=== PATIENT | female | born 1970 | race African-American/Black ===

== ENCOUNTER 2016-08-31 18:41 | Emergency (ER) | payer OTHER ==
[~2016-08-31] VITALS: Ht 168.9 cm; Wt 63.5 kg
[~2016-08-31 18:41] MED LIST: CITA20TA9 PO
[2016-08-31 20:08] VITALS: BP 112/72
== END 2016-08-31 20:34 | disposition home or self-care (01) ==
LOC: EMS 18:44
DX: L03.114 Cellulitis of left upper limb (principal); F17.210 Nicotine dependence, cigarettes, uncomplicated; F12.90 Cannabis use, unspecified, uncomplicated; Z88.1 Allergy status to other antibiotic agents; Z91.018 Allergy to other foods
CPT/HCPCS: 99283

== ENCOUNTER 2016-09-03 11:14 | Emergency (ER) | payer OTHER ==
[~2016-09-03] VITALS: Ht 167.6 cm; Wt 63.6 kg
[2016-09-03] MEDS ORDERED: DOXY100C40 PO (11:25)
[2016-09-03] MEDS ORDERED: BACTDSB PO (11:25)
[2016-09-03] MEDS ORDERED: CEPH500C2 PO (11:57)
[2016-09-03] MEDS ORDERED: TraMADol HCL 50 MG TABLET PO ONE (13:30)
[2016-09-03] MEDS ORDERED: DOXYCYCLINE 100 MG CAPSULE PO ONE (13:30)
[2016-09-03 14:54] VITALS: BP 104/75
== END 2016-09-03 15:26 | disposition home or self-care (01) ==
LOC: EMS 11:15
DX: L02.414 Cutaneous abscess of left upper limb (principal); F17.210 Nicotine dependence, cigarettes, uncomplicated; F12.90 Cannabis use, unspecified, uncomplicated; Z88.8 Allergy status to other drugs, medicaments and biological substances; Z91.018 Allergy to other foods
CPT/HCPCS: 99283; 99406

== ENCOUNTER 2017-03-23 09:22 | Emergency (ER) | payer OTHER ==
[~2017-03-23] VITALS: Ht 167.6 cm; Wt 65.9 kg
[~2017-03-23 09:22] MED LIST changes: +BACTDSB PO; +CEPH500C2 PO
[2017-03-23 10:21] VITALS: BP 124/78
== END 2017-03-23 10:30 | disposition home or self-care (01) ==
LOC: EMS 09:23
DX: L02.411 Cutaneous abscess of right axilla (principal); F17.210 Nicotine dependence, cigarettes, uncomplicated; F12.90 Cannabis use, unspecified, uncomplicated; Z88.8 Allergy status to other drugs, medicaments and biological substances; Z88.1 Allergy status to other antibiotic agents
CPT/HCPCS: 99283

== ENCOUNTER 2017-03-25 09:06 | Emergency (ER) | payer OTHER ==
[~2017-03-25] VITALS: Ht 167.6 cm; Wt 65.5 kg
[~2017-03-25 09:06] MED LIST changes: -BACTDSB PO; -CEPH500C2 PO
[2017-03-25] MEDS ORDERED: SULF1TAB42 PO (09:14)
[2017-03-25] MEDS ORDERED: MORPHINE SULFATE 4 MG/ML SYRINGE IM ONE (11:15)
[2017-03-25] MEDS ORDERED: LIDOCAINE HCL 1% 10 ML VIAL INJ ONE (11:15)
[2017-03-25 12:43] VITALS: BP 97/77
== END 2017-03-25 12:45 | disposition home or self-care (01) ==
LOC: EDUNIT# 09:06 → EMS 09:08
DX: L02.411 Cutaneous abscess of right axilla (principal); F12.90 Cannabis use, unspecified, uncomplicated; F17.210 Nicotine dependence, cigarettes, uncomplicated; Z88.1 Allergy status to other antibiotic agents; Z91.018 Allergy to other foods
CPT/HCPCS: 10060; 96372; 99283; J2270; J3490

== ENCOUNTER 2017-03-27 13:46 | Emergency (ER) | payer OTHER ==
[~2017-03-27] VITALS: Ht 167.6 cm; Wt 65.9 kg
[~2017-03-27 13:46] MED LIST changes: +SULF1TAB42 PO
[2017-03-27] MEDS ORDERED: HYDROCODONE/ACETAMINOPHEN 5-325 MG TABLET PO ONE (18:30)
[2017-03-27] MEDS ORDERED: POVIDONE-IODINE 10% 15 ML SOLUTION UD TP ONE (18:30)
[2017-03-27 19:13] VITALS: BP 121/78
== END 2017-03-27 19:13 | disposition home or self-care (01) ==
LOC: EMS 13:48
DX: Z48.00 Encounter for change or removal of nonsurgical wound dressing (principal); F12.90 Cannabis use, unspecified, uncomplicated; F17.210 Nicotine dependence, cigarettes, uncomplicated; Z88.0 Allergy status to penicillin; Z91.018 Allergy to other foods
CPT/HCPCS: 99283

== ENCOUNTER 2017-05-21 07:37 | Emergency (ER) | payer OTHER ==
[~2017-05-21] VITALS: Ht 167.6 cm; Wt 65.5 kg
[2017-05-21 10:13] VITALS: BP 118/68
== END 2017-05-21 10:30 | disposition home or self-care (01) ==
LOC: EMS 07:38
DX: L02.412 Cutaneous abscess of left axilla (principal); F17.210 Nicotine dependence, cigarettes, uncomplicated; F12.90 Cannabis use, unspecified, uncomplicated; Z88.1 Allergy status to other antibiotic agents; Z88.8 Allergy status to other drugs, medicaments and biological substances
CPT/HCPCS: 99283

== ENCOUNTER 2017-05-24 08:59 | Emergency (ER) | payer OTHER ==
[~2017-05-24] VITALS: Ht 167.6 cm; Wt 65.9 kg
[~2017-05-24 08:59] MED LIST changes: -SULF1TAB42 PO
[2017-05-24] MEDS ORDERED: IBUPROFEN 800 MG TABLET PO ONE (11:15)
[2017-05-24] MEDS ORDERED: BUPIVACAINE HCL/PF 0.25% 10 ML VIAL INJ ONE (11:15)
[2017-05-24] MEDS ORDERED: POVIDONE-IODINE 10% 15 ML SOLUTION UD TP ONE (11:15)
[2017-05-24 12:31] VITALS: BP 122/79
== END 2017-05-24 12:50 | disposition home or self-care (01) ==
LOC: EMS 08:59
DX: L02.414 Cutaneous abscess of left upper limb (principal); F17.210 Nicotine dependence, cigarettes, uncomplicated; F12.90 Cannabis use, unspecified, uncomplicated; Z88.1 Allergy status to other antibiotic agents; Z88.8 Allergy status to other drugs, medicaments and biological substances
CPT/HCPCS: 10060; 99283; J3490

== ENCOUNTER 2017-05-26 09:14 | Emergency (ER) | payer OTHER ==
[~2017-05-26] VITALS: Ht 167.6 cm; Wt 61.4 kg
[2017-05-26 10:00] VITALS: BP 102/72
== END 2017-05-26 10:07 | disposition home or self-care (01) ==
LOC: EMS 09:16
DX: Z48.00 Encounter for change or removal of nonsurgical wound dressing (principal); F32.9 Major depressive disorder, single episode, unspecified; F12.10 Cannabis abuse, uncomplicated; F17.210 Nicotine dependence, cigarettes, uncomplicated; Z88.1 Allergy status to other antibiotic agents; Z91.02 Food additives allergy status
CPT/HCPCS: 99283

== ENCOUNTER 2018-02-09 16:50 | Emergency (ER) | payer OTHER ==
[~2018-02-09] VITALS: Ht 167.6 cm; Wt 50.0 kg
[~2018-02-09 16:50] MED LIST changes: +CITA-106 PO; -CITA20TA9 PO
[2018-02-09] MEDS ORDERED: BACITRACIN 0.9 GM PACKET OINTMENT TP ONE (19:15)
[2018-02-09] MEDS ORDERED: PERTUSS(ACELL),DIPH,TET VAC/PF 0.5 ML VIAL IM ONE (19:15)
[2018-02-09] MEDS ORDERED: KETOROLAC TROMETHAMINE 30 MG/ML VIAL IM ONE (19:15)
[2018-02-09] MEDS ORDERED: LIDOCAINE HCL/PF 1% 5 ML VIAL INJ ONE (19:15)
[2018-02-09 20:48] VITALS: BP 121/69
== END 2018-02-09 20:55 | disposition home or self-care (01) ==
LOC: EMS 16:52
DX: S91.011A Laceration without foreign body, right ankle, initial encounter (principal); F32.9 Major depressive disorder, single episode, unspecified; K76.9 Liver disease, unspecified; F17.210 Nicotine dependence, cigarettes, uncomplicated; F12.10 Cannabis abuse, uncomplicated; Z71.6 Tobacco abuse counseling; Z88.1 Allergy status to other antibiotic agents; Z88.8 Allergy status to other drugs, medicaments and biological substances; Z79.899 Other long term (current) drug therapy; W26.8XXA Contact with other sharp object(s), not elsewhere classified, initial encounter; Y93.89 Activity, other specified; Y92.098 Other place in other non-institutional residence as the place of occurrence of the external cause; Y99.8 Other external cause status
CPT/HCPCS: 12002; 73610; 90471; 90715; 96372; 99284; 99406; J1885; J3490

== ENCOUNTER 2018-02-20 14:17 | Emergency (ER) | payer OTHER ==
[~2018-02-20] VITALS: Ht 167.6 cm; Wt 65.9 kg
[2018-02-20] MEDS ORDERED: BACITRACIN 0.9 GM PACKET OINTMENT TP ONE (15:00)
[2018-02-20 15:47] VITALS: BP 107/61
== END 2018-02-20 15:50 | disposition home or self-care (01) ==
LOC: EMS 14:19
DX: S91.011D Laceration without foreign body, right ankle, subsequent encounter (principal); F32.9 Major depressive disorder, single episode, unspecified; K76.89 Other specified diseases of liver; F17.210 Nicotine dependence, cigarettes, uncomplicated; F12.90 Cannabis use, unspecified, uncomplicated; Z71.6 Tobacco abuse counseling; Z88.1 Allergy status to other antibiotic agents; Z88.8 Allergy status to other drugs, medicaments and biological substances; Z79.899 Other long term (current) drug therapy; X58.XXXD Exposure to other specified factors, subsequent encounter
CPT/HCPCS: 99282; 99406

== ENCOUNTER 2018-10-16 15:23 | Emergency (ER) | payer OTHER ==
[~2018-10-16] VITALS: Ht 170.2 cm; Wt 67.3 kg
[2018-10-16] MEDS ORDERED: IBUPROFEN 800 MG TABLET PO ONE (16:00)
[2018-10-16] MEDS ORDERED: CYCLOBENZAPRINE HCL 10 MG TABLET PO ONE (16:00)
[2018-10-16 17:14] VITALS: BP 105/61
== END 2018-10-16 17:16 | disposition home or self-care (01) ==
LOC: EMS 15:33
DX: S70.02XA Contusion of left hip, initial encounter (principal); F17.210 Nicotine dependence, cigarettes, uncomplicated; F32.9 Major depressive disorder, single episode, unspecified; F12.90 Cannabis use, unspecified, uncomplicated; Z88.1 Allergy status to other antibiotic agents; V43.52XA Car driver injured in collision with other type car in traffic accident, initial encounter; Y93.89 Activity, other specified; Y92.412 Parkway as the place of occurrence of the external cause; Y99.8 Other external cause status
CPT/HCPCS: 73503; 99406

== ENCOUNTER 2019-02-19 08:04 | Emergency (ER) | payer OTHER ==
[~2019-02-19] VITALS: Ht 167.6 cm; Wt 68.0 kg
[2019-02-19 08:14] VITALS: BP 118/85
== END 2019-02-19 08:40 | disposition home or self-care (01) ==
LOC: EMS 08:05
DX: L73.2 Hidradenitis suppurativa (principal); L02.211 Cutaneous abscess of abdominal wall; L03.311 Cellulitis of abdominal wall; F32.9 Major depressive disorder, single episode, unspecified; F17.210 Nicotine dependence, cigarettes, uncomplicated; Z79.899 Other long term (current) drug therapy; Z88.1 Allergy status to other antibiotic agents; Z88.8 Allergy status to other drugs, medicaments and biological substances

== ENCOUNTER 2019-04-11 08:56 | Emergency (ER) | payer OTHER ==
[~2019-04-11] VITALS: Ht 167.6 cm; Wt 61.4 kg
[2019-04-11 10:12] LABS: BASOPHILS % (AUTO) 0.6 % (0.0-2.0); EOSINOPHILS % (AUTO) 2.7 % (1.0-6.0); HEMATOCRIT 35.3 % (36-46); HEMOGLOBIN 11.8 g/dL (12.0-16.0); LYMPHOCYTES # (AUTO) 1.1 K/uL (1.0-4.8); LYMPHOCYTES % (AUTO) 39.5 % (22.0-44.0); MEAN CORPUSCULAR HEMOGLOBIN 33.4 pg (26.0-34.0); MEAN CORPUSCULAR HGB CONC 33.5 G/dL (31.0-37.0); MEAN CORPUSCULAR VOLUME 100 fL (80-100); MONOCYTES # (AUTO) 0.2 K/uL (0.1-1.0); MONOCYTES % (AUTO) 8.4 % (2.0-9.0); NEUTROPHILS # (AUTO) 1.4 K/uL (1.8-7.7); NEUTROPHILS % (AUTO) 48.8 % (40.0-70.0); PLATELET COUNT (AUTO) 150 K/uL (150-450); RED BLOOD CELL COUNT(AUTO) 3.54 MIL/uL (4.00-5.20); RED CELL DISTRIBUTION WIDTH 14.8 % (11.5-14.5)
[2019-04-11 10:20] LABS: ANION GAP 2 mmol/L (8-16); CARBON DIOXIDE 29 mmol/L (22-29); CHLORIDE 108 mmol/L (98-107); CREATININE 0.75 mg/dL (0.60-1.30); GLUCOSE,RANDOM 78 mg/dL (70-110); POTASSIUM 3.8 mmol/L (3.5-5.1); SODIUM SERUM 139 mmol/L (136-145); UREA NITROGEN, BLOOD 8 mg/dL (7-18)
[2019-04-11 10:21] LABS: CALCIUM, TOTAL 8.7 mg/dL (8.8-10.5); GLOMERULAR FILTR. RATE CALC > 60 mL/min (>60)
[2019-04-11 10:26] LABS: ALANINE AMINOTRANSFERASE 13 U/L (12-78); ALBUMIN 3.4 g/dL (3.4-5.0); ALKALINE PHOSPHATASE 68 U/L (46-116); ASPARTATE AMINOTRANSFERASE 17 U/L (15-37); BILIRUBIN,TOTAL 0.2 mg/dL (0.1-1.0); TOTAL PROTEIN, SERUM 7.1 g/dL (6.4-8.2)
[2019-04-11 12:20] VITALS: BP 112/79
== END 2019-04-11 12:30 | disposition left against medical advice (07) ==
LOC: EMS 08:59
DX: R07.89 Other chest pain (principal); M79.602 Pain in left arm; F32.9 Major depressive disorder, single episode, unspecified; F17.210 Nicotine dependence, cigarettes, uncomplicated; Z88.1 Allergy status to other antibiotic agents; Z91.018 Allergy to other foods
CPT/HCPCS: 93005

== ENCOUNTER 2019-11-01 08:40 | Emergency (ER) | payer OTHER ==
[~2019-11-01] VITALS: Ht 167.6 cm; Wt 63.6 kg
[~2019-11-01 08:40] MED LIST changes: -CITA-106 PO; +CITA-144 PO
[2019-11-01] MEDS ORDERED: KETOROLAC TROMETHAMINE 30 MG/ML VIAL IM ONE (09:15)
[2019-11-01 12:48] VITALS: BP 136/79
== END 2019-11-01 12:45 | disposition home or self-care (01) ==
LOC: EMS 08:46
DX: M25.552 Pain in left hip (principal); F32.9 Major depressive disorder, single episode, unspecified; F17.210 Nicotine dependence, cigarettes, uncomplicated; Z88.1 Allergy status to other antibiotic agents; Z91.018 Allergy to other foods
CPT/HCPCS: 73503; 96372; 99285; J1885

== ENCOUNTER 2020-12-11 10:28 | Emergency (ER) | payer OTHER ==
[~2020-12-11] VITALS: Ht 167.6 cm; Wt 65.9 kg
[2020-12-11 11:13] LABS: BASOPHILS % (AUTO) 0.5 % (0.0-2.0); EOSINOPHILS % (AUTO) 1.6 % (1.0-6.0); HEMATOCRIT 33.5 % (36-46); HEMOGLOBIN 11.2 g/dL (12.0-16.0); LYMPHOCYTES # (AUTO) 1.3 K/uL (1.0-4.8); LYMPHOCYTES % (AUTO) 33.4 % (22.0-44.0); MEAN CORPUSCULAR HEMOGLOBIN 33.7 pg (26.0-34.0); MEAN CORPUSCULAR HGB CONC 33.3 G/dL (31.0-37.0); MEAN CORPUSCULAR VOLUME 101 fL (80-100); MONOCYTES # (AUTO) 0.3 K/uL (0.1-1.0); MONOCYTES % (AUTO) 7.9 % (2.0-9.0); NEUTROPHILS # (AUTO) 2.2 K/uL (1.8-7.7); NEUTROPHILS % (AUTO) 56.6 % (40.0-70.0); PLATELET COUNT (AUTO) 115 K/uL (150-450); RED BLOOD CELL COUNT(AUTO) 3.32 MIL/uL (4.00-5.20); RED CELL DISTRIBUTION WIDTH 14.6 % (11.5-14.5)
[2020-12-11] MEDS ORDERED: PB/HYOSCY/ATR/SCOP/LIDO/MAALOX 55 ML BOTTLE PO ONE (11:15)
[2020-12-11 11:21] LABS: COVID AG,FIA SOURCE NASOPHARYNGEAL
[2020-12-11 11:23] LABS: ANION GAP 5 mmol/L (8-16); CALCIUM, TOTAL 8.7 mg/dL (8.8-10.5); CARBON DIOXIDE 26 mmol/L (22-29); CHLORIDE 108 mmol/L (98-107); CREATININE 0.75 mg/dL (0.60-1.30); GLOMERULAR FILTR. RATE CALC > 60 mL/min (>60); GLUCOSE,RANDOM 130 mg/dL (70-110); POTASSIUM 3.7 mmol/L (3.5-5.1); SODIUM SERUM 139 mmol/L (136-145); UREA NITROGEN, BLOOD 9 mg/dL (7-18)
[2020-12-11 11:29] LABS: ALANINE AMINOTRANSFERASE 21 U/L (12-78); ALBUMIN 3.5 g/dL (3.4-5.0); ALKALINE PHOSPHATASE 63 U/L (46-116); ASPARTATE AMINOTRANSFERASE 19 U/L (15-37); BILIRUBIN,TOTAL 0.4 mg/dL (0.1-1.0); LIPASE 53 U/L (73-393); TOTAL PROTEIN, SERUM 6.5 g/dL (6.4-8.2)
[2020-12-11 12:09] VITALS: BP 108/77
== END 2020-12-11 12:58 | disposition home or self-care (01) ==
LOC: EMS 10:37
DX: S27.818A Other injury of esophagus (thoracic part), initial encounter (principal); F32.9 Major depressive disorder, single episode, unspecified; F17.210 Nicotine dependence, cigarettes, uncomplicated; Z20.822 Contact with and (suspected) exposure to COVID-19; Z88.1 Allergy status to other antibiotic agents; Z91.018 Allergy to other foods; X58.XXXA Exposure to other specified factors, initial encounter; Y93.89 Activity, other specified; Y92.89 Other specified places as the place of occurrence of the external cause; Y99.8 Other external cause status
CPT/HCPCS: 71045; 80053; 83690; 84484; 85025; 93005; 99285; 36415-L1; 36415-TC

== ENCOUNTER 2020-12-28 06:47 | Emergency (ER) | payer OTHER ==
[~2020-12-28] VITALS: Ht 168.9 cm; Wt 65.9 kg
[2020-12-28 06:53] VITALS: BP 112/72
== END 2020-12-28 09:05 | disposition home or self-care (01) ==
LOC: EMS 06:50
DX: L02.412 Cutaneous abscess of left axilla (principal); L73.2 Hidradenitis suppurativa; F32.9 Major depressive disorder, single episode, unspecified; F17.210 Nicotine dependence, cigarettes, uncomplicated; Z91.018 Allergy to other foods; Z88.6 Allergy status to analgesic agent
CPT/HCPCS: 99283

== ENCOUNTER 2021-06-02 08:26 | Emergency (ER) | payer OTHER ==
[~2021-06-02] VITALS: Ht 167.6 cm; Wt 65.9 kg
[2021-06-02 08:27] VITALS: BP 119/76
== END 2021-06-02 08:58 | disposition home or self-care (01) ==
LOC: EMS 08:53
DX: N73.9 Female pelvic inflammatory disease, unspecified (principal)
CPT/HCPCS: 99283

== ENCOUNTER 2021-06-27 08:30 | Emergency (ER) | payer OTHER ==
[~2021-06-27] VITALS: Ht 170.2 cm; Wt 65.0 kg
[2021-06-27 08:32] VITALS: BP 139/69
[2021-06-27] MEDS ORDERED: CLINDAMYCIN HCL 150 MG CAPSULE PO ONE (10:00)
[2021-06-27] MEDS ORDERED: IBUPROFEN 600 MG TABLET PO ONE (10:00)
[2021-06-27] MEDS ORDERED: CLIN-26 PO ×2 (10:06→10:50)
== END 2021-06-27 10:42 | disposition home or self-care (01) ==
LOC: EMS 08:32
DX: L03.311 Cellulitis of abdominal wall (principal)
CPT/HCPCS: 99283; 99284

== ENCOUNTER 2021-09-03 10:43 | Emergency (ER) | payer OTHER ==
[~2021-09-03] VITALS: Ht 170.2 cm; Wt 66.8 kg
[~2021-09-03 10:43] MED LIST changes: +CLIN-26 PO
[2021-09-03] MEDS ORDERED: KETOROLAC TROMETHAMINE 10 MG TABLET PO ONE (11:30)
[2021-09-03 13:19] VITALS: BP 112/72
== END 2021-09-03 13:43 | disposition home or self-care (01) ==
LOC: EMS 10:45
DX: S63.642A Sprain of metacarpophalangeal joint of left thumb, initial encounter (principal); F32.9 Major depressive disorder, single episode, unspecified; F17.210 Nicotine dependence, cigarettes, uncomplicated; Z88.1 Allergy status to other antibiotic agents; Z91.018 Allergy to other foods; Z79.899 Other long term (current) drug therapy; X50.9XXA Other and unspecified overexertion or strenuous movements or postures, initial encounter; Y93.89 Activity, other specified; Y92.89 Other specified places as the place of occurrence of the external cause; Y99.8 Other external cause status
CPT/HCPCS: 99283

== ENCOUNTER 2021-12-07 00:14 | Emergency (ER) | payer OTHER ==
[~2021-12-07] VITALS: Ht 167.6 cm; Wt 66.6 kg
[~2021-12-07 00:14] MED LIST changes: -CLIN-26 PO
[2021-12-07 01:15] VITALS: BP 106/63
[2021-12-07] MEDS ORDERED: FLUORESCEIN SODIUM 1 MG STRIP ONE (01:22)
[2021-12-07] MEDS ORDERED: PROPARACAINE HCL 0.5% 15 ML OPHTHALMIC SOLUTION OU ONE (01:30)
[2021-12-07] MEDS ORDERED: MOXI3DRO27 OS (01:35)
== END 2021-12-07 02:47 | disposition home or self-care (01) ==
LOC: EMS 00:15
DX: H00.014 Hordeolum externum left upper eyelid (principal); F17.210 Nicotine dependence, cigarettes, uncomplicated; Z88.1 Allergy status to other antibiotic agents; Z79.899 Other long term (current) drug therapy
CPT/HCPCS: 99283

== ENCOUNTER 2022-04-15 08:20 | Emergency (ER) | payer OTHER ==
[~2022-04-15] VITALS: Ht 165.1 cm; Wt 63.6 kg
[~2022-04-15 08:20] MED LIST changes: +MOXI3DRO27 OS
[2022-04-15 09:16] LABS: APPEARANCE,URINE CLEAR (CLEAR); BILIRUBIN,URINE NEGATIVE (NEGATIVE); GLUCOSE, URINE (UA) NEGATIVE (NEGATIVE); KETONES,URINE NEGATIVE (NEGATIVE); LEUKOCYTE ESTERASE ,URINE NEGATIVE (NEGATIVE); NITRATE,URINE NEGATIVE (NEGATIVE); OCCULT BLOOD,URINE NEGATIVE (NEGATIVE); PROTEIN,URINE NEGATIVE (NEGATIVE); SPECIFIC GRAVITIY, URINE 1.016 (1.003-1.030); UROBILINOGEN,URINE <=1.0 mg/dL (<=1.0)
[2022-04-15 09:25] VITALS: BP 148/72
[2022-04-15] MEDS ORDERED: IBUPROFEN 600 MG TABLET PO ONE (09:30)
[2022-04-15] MEDS ORDERED: ACETAMINOPHEN 325 MG TABLET PO ONE (09:30)
[2022-04-15] MEDS ORDERED: LIDOCAINE 5% TRANSDERMAL PATCH TD ONE (09:30)
[2022-04-15] MEDS ORDERED: ACET-3385 PO (09:33)
[2022-04-15] MEDS ORDERED: IBUP-2070 PO (09:33)
[2022-04-15] MEDS ORDERED: LIDO700A15 TP (09:33)
== END 2022-04-15 09:52 | disposition home or self-care (01) ==
LOC: EMS 08:29
DX: S39.012A Strain of muscle, fascia and tendon of lower back, initial encounter (principal); F32.9 Major depressive disorder, single episode, unspecified; F17.210 Nicotine dependence, cigarettes, uncomplicated; X58.XXXA Exposure to other specified factors, initial encounter; Y93.89 Activity, other specified; Y92.89 Other specified places as the place of occurrence of the external cause; Y99.8 Other external cause status; Z88.5 Allergy status to narcotic agent
CPT/HCPCS: 81003; 84703; 99284

== ENCOUNTER 2022-12-26 18:32 | Emergency (ER) | payer OTHER ==
[~2022-12-26] VITALS: Ht 167.6 cm; Wt 63.6 kg
[~2022-12-26 18:32] MED LIST changes: +ACET-3385 PO; +IBUP-1492 PO; +LIDO700A15 TP; -MOXI3DRO27 OS
[2022-12-26 18:59] VITALS: BP 143/66; PULSE 64; RESP 18; TEMP 97.9
== END 2022-12-26 19:12 | disposition left against medical advice (07) ==
LOC: EMS 18:33
DX: M54.2 Cervicalgia (principal); Z53.21 Procedure and treatment not carried out due to patient leaving prior to being seen by health care provider
CPT/HCPCS: 99281; Z7502

== ENCOUNTER 2023-01-27 09:50 | Emergency (ER) | payer OTHER ==
[~2023-01-27] VITALS: Ht 167.6 cm; Wt 65.9 kg
[2023-01-27 09:56] VITALS: BP 136/70; PULSE 76; RESP 16; TEMP 97.9
== END 2023-01-27 11:52 | disposition left against medical advice (07) ==
LOC: EMS 09:50
DX: L02.416 Cutaneous abscess of left lower limb (principal); Z53.21 Procedure and treatment not carried out due to patient leaving prior to being seen by health care provider
CPT/HCPCS: 99281; Z7502